=== PATIENT | female | born 1945 | race Two or more races ===

== ENCOUNTER 2017-06-04 14:52 | Inpatient (IN) | payer OTHER, MEDICARE ==
[~2017-06-04] VITALS: Ht 154.9 cm; Wt 48.3 kg
[~2017-06-04 14:52] MED LIST: ATORVASTATIN CA20 MG ORAL; CLONIDINE0.1 MG PO; COREG25 MG ORAL; DIOVAN320 MG ORAL; HYDRALAZINE HC100 MG ORAL; IBUPROFEN600 MG ORAL; ISOSORBIDE MONO20 MG PO; LANTUS5 UNITS SUBQ; OMEPRAZOLE20 M2 ORAL; RENVELA800 MG ORAL
[2017-06-04 15:08] VITALS: BP 176/75
--- NOTE | 2017-06-04 15:30 | Emergency Room Report ---
History of Present Illness General Chief Complaint: Chest Pain Source: Patient Present Illness HPI 80-year-old female, history of hypertension diabetes, end-stage renal disease on dialysis Wednesday and Wednesday. Last dialysis yesterday. Complaining of generalized weakness, chest pain, right hip pain. Grandson states that yesterday patient was feeling very weak, he was walking the patient , fell onto her buttocks, did not hit her head or lose consciousness. Since then patient is complaining of right-sided hip pain. Also patient complaining of general chest pain. Her right-sided dialysis catheter has been in place for 4 years. No fever chills nausea vomiting. Decreased appetite. Allergies: Coded Allergies: No Known Allergies (Unverified , 11/20/14) Patient History Past Medical History: see triage record Past Surgical History: none Pertinent Family History: none Reviewed Nursing Documentation: PMH: Agreed, PSxH: Agreed Nursing Documentation-PM Hx Cardiac Problems: Yes Hx Hypertension: Yes Hx Diabetes: Yes Hx Cancer: No Hx Gastrointestinal Problems: No Hx Dialysis: Yes - Wed Hx Neurological Problems: No Review of Systems All Other Systems: negative except mentioned in HPI Physical Exam Vital Signs Date Time Temp Pulse Resp B/P (MAP) Pulse Ox O2 Delivery O2 Flow Rate FiO2 06/04/17 15:00 100.4 82 20 171/72 100 Room Air Sp02 EP Interpretation: abnormal General Appearance: moderate distress, thin, other - elderly female, aox4, in pain Head: normocephalic, atraumatic Eyes: bilateral eye normal inspection, bilateral eye PERRL, bilateral eye EOMI ENT: normal ENT inspection, normal pharynx, normal voice, moist mucus membranes Neck: normal inspection, full range of motion, supple Respiratory: no respiratory distress, no retraction, no wheezing, other - dec breath sounds b/l bases, chest symmetrical Cardiovascular #1: regular rate, rhythm, no edema, other - R sided dialysis port Cardiovascular #2: 2+ radial (R), 2+ radial (L) Gastrointestinal: normal inspection, non tender, soft, non-distended, no guarding Musculoskeletal: other - R sided hip tenderness, has range of passive motion, slightly limited 2/2 to pain. no limb shortening or rotation. Neurologic: normal inspection, alert, oriented x3, responsive, motor strength/ tone normal, sensory intact, speech normal Psychiatric: normal inspection, judgement/insight normal, memory normal Skin: normal inspection, normal color, no rash, warm/dry, well hydrated, normal turgor Medical Decision Making Diagnostic Impression: Primary Impression: ESRD (end stage renal disease) Additional Impression: Vascular catheter infection ER Course 72-year-old female with 3 days of intermittent chest pain, generalized weakness , right-sided hip pain after fall yesterday. DDX: ACS vs. CHF vs. pneumonia Generalized weakness: dehydration/electrolyte disturbance/Infectious cause, UTI/ pneumonia, infected dialysis cath Right-sided hip pain: r/o fx vs contusion Plan: IV access, obtain labs including troponin, EKG, CXR Right hip CT ER course: +fever, tylenol given aspirin given for chest pain D/W Dr Pagan pt's PMD - she has had multiple admissions for chest pain, likely musculoskeletal, stress tests have been negative believed line likely infected as patient has had it for four years - abx given CT hip negative Disposition: Patient requires admission telemetry D/W hospitalist Dr Pagan Please note that this Emergency Department Report was dictated using Guided Interventionstelevision operator technology software, occasionally this can lead to erroneous entry secondary to interpretation by the dictation equipment. EKG Diagnostic Results EP Interpretation: Yes Rate: normal Rhythm: NSR ST Segments: No acute changes ASA given to patient: no Rhythm Strip EP Interpretation: Yes Rate:80 Rhythm: NSR, no PVCs, no ectopy Chest X-ray CXR: Ordered: Yes 1 view Indication: Chest pain EP interpretation: Yes Interpretation: cardiomegaly, w interstitital edema. b/l effusion. dialysis cath in place Impression: cardiomegaly, w interstitital edema. b/l effusion Electronically signed by Sharon Seay MD Laboratory Tests Test 06/04/17 15:25 White Blood Count 9.0 K/UL (4.8-10.8) Red Blood Count 3.78 M/UL (4.20-5.40) L Hemoglobin 11.3 G/DL (12.0-16.0) L Hematocrit 35.2 % (37.0-47.0) L Mean Corpuscular Volume 93 FL (80-99) Mean Corpuscular Hemoglobin 29.8 PG (27.0-31.0) Mean Corpuscular Hemoglobin Concent 32.0 G/DL (32.0-36.0) Red Cell Distribution Width 17.0 % (11.6-14.8) H Platelet Count 134 K/UL (150-450) L Mean Platelet Volume 8.2 FL (6.5-10.1) Neutrophils (%) (Auto) 88.1 % (45.0-75.0) H Lymphocytes (%) (Auto) 4.5 % (20.0-45.0) L Monocytes (%) (Auto) 7.0 % (1.0-10.0) Eosinophils (%) (Auto) 0.0 % (0.0-3.0) Basophils (%) (Auto) 0.4 % (0.0-2.0) Sodium Level 130 MMOL/L (136-145) L Potassium Level 5.2 MMOL/L (3.5-5.1) H Chloride Level 95 MMOL/L (98-107) L Carbon Dioxide Level 20 MMOL/L (21-32) L Anion Gap 15 mmol/L (5-15) Blood Urea Nitrogen 66 mg/dL (7-18) H Creatinine 5.7 MG/DL (0.55-1.30) H Estimate Glomerular Filtration Rate mL/min (>60) Glucose Level 174 MG/DL (74-106) H Lactic Acid Level 1.20 mmol/L (0.66-2.22) Calcium Level 9.1 MG/DL (8.5-10.1) Total Bilirubin 1.0 MG/DL (0.2-1.0) Aspartate Amino Transferase (AST) 33 U/L (15-37) Alanine Aminotransferase (ALT) 14 U/L (12-78) Alkaline Phosphatase 208 U/L (46-116) H Troponin I 0.263 ng/mL (0.000-0.056) Pro-B-Type Natriuretic Peptide > 47090 pg/mL (0-125) H Total Protein 8.4 G/DL (6.4-8.2) H Albumin 2.9 G/DL (3.4-5.0) L Globulin 5.5 g/dL Albumin/Globulin Ratio 0.5 (1.0-2.7) L CT/MRI/US Diagnostic Results CT/MRI/US Diagnostic Results : Imaging Test Ordered: CT hip Impression Findings: No acute pelvic fracture identified. Bilateral hip joints, sacroiliac joints and symphysis pubis are preserved. There is scoliosis and degenerative change of the lower lumbar spine. There is vacuum disc phenomenon at L4-L5. Images through the visceral pelvis demonstrate mild ascites. There is no bowel obstruction. Uterus is atrophic. There is extensive atherosclerotic vascular calcification. There is a tiny fat-containing umbilical hernia. IMPRESSION: No evidence of acute fracture. Mild ascites. Extensive atherosclerotic vascular calcifications Last Vital Signs Date Time Temp Pulse Resp B/P (MAP) Pulse Ox O2 Delivery O2 Flow Rate FiO2 06/04/17 15:00 100.4 82 20 171/72 100 Room Air Disposition: ADMITTED INPATIENT Condition: Serious Sharon Seay M.D. Jun 04, 2017 15:30
[2017-06-04 15:39] LABS: HEMATOCRIT 35.2 % (37.0-47.0); HEMOGLOBIN 11.3 G/DL (12.0-16.0); MEAN CORPUSCULAR VOLUME 93 FL (80-99); PLATELET COUNT 134 K/UL (150-450); RED BLOOD COUNT 3.78 M/UL (4.20-5.40)
[2017-06-04 15:40] LABS: BASOPHILS % (AUTO) 0.4 % (0.0-2.0); LYMPHOCYTES % (AUTO) 4.5 % (20.0-45.0); NEUTROPHILS % (AUTO) 88.1 % (45.0-75.0)
[2017-06-04 16:06] LABS: ANION GAP 15 mmol/L (5-15); BLOOD UREA NITROGEN 66 mg/dL (7-18); CALCIUM 9.1 MG/DL (8.5-10.1); CARBON DIOXIDE 20 MMOL/L (21-32); CHLORIDE 95 MMOL/L (98-107); CREATININE 5.7 MG/DL (0.55-1.30); POTASSIUM 5.2 MMOL/L (3.5-5.1); SODIUM 130 MMOL/L (136-145)
[2017-06-04 16:13] VITALS: BP 163/71
[2017-06-04 16:23] LABS: ALANINE AMINOTRANSFERASE 14 U/L (12-78); ALBUMIN 2.9 G/DL (3.4-5.0); ALBUMIN/GLOBULIN RATIO 0.5 (1.0-2.7); ALKALINE PHOSPHATASE 208 U/L (46-116); ASPARTATE AMINO TRANSFERASE 33 U/L (15-37)
[2017-06-04] MEDS ORDERED: Cefepime 1gm vial ONE (16:38)
--- NOTE | 2017-06-04 16:39 | Diagnostic Imaging Report ---
Indication: Pain status post fall Technique: Noncontrast CT of the right hip obtained utilizing automated exposure control. Axial, sagittal and coronal reformats. CT dose: Total DLP 349 mGycm; CTDI vol 12.2 mGy Comparison: Correlation made to images of the pelvis from CT of the abdomen and pelvis 09/17/2015. Findings: No acute pelvic fracture identified. Bilateral hip joints, sacroiliac joints and symphysis pubis are preserved. There is scoliosis and degenerative change of the lower lumbar spine. There is vacuum disc phenomenon at L4-L5. Images through the visceral pelvis demonstrate mild ascites. There is no bowel obstruction. Uterus is atrophic. There is extensive atherosclerotic vascular calcification. There is a tiny fat-containing umbilical hernia. IMPRESSION: No evidence of acute fracture. Mild ascites. Extensive atherosclerotic vascular calcifications The CT scanner at [facility] is accredited by the [employer] and the scans are performed using protocols designed to limit radiation exposure to as low as reasonably achievable to attain images of sufficient resolution adequate for diagnostic evaluation.
[2017-06-04] MEDS ORDERED: Cefepime HCl 1 GM in NS 55 ML IV ONE (16:45)
[2017-06-04] MEDS ORDERED: Vancomycin 1 GM in NS 275 ML IVPB ONE (16:45)
--- NOTE | 2017-06-04 16:48 | Diagnostic Imaging Report ---
Indication: Chest pain Technique: XRAY Chest 1v Comparison: 12/03/2014 Findings: Heart is enlarged. Dialysis catheter unchanged in position with its tip in the region of the right atrium. There bilateral pleural effusions, right greater than left with dense consolidation/atelectasis in the bilateral lower lungs. There is interstitial edema/opacification. No pneumothorax. There is multilevel degenerative change of the spine. Impression: Cardiomegaly with interstitial edema. Bilateral pleural effusions, right greater than left, with dense bibasilar atelectasis/consolidation.
[2017-06-04] MEDS ORDERED: Vancomycin 1gm inj IVPB ONE (17:18)
[2017-06-04 18:56] VITALS: BP 156/68
[2017-06-04] MEDS ORDERED: UNOBMED (19:08)
[2017-06-04 21:00] VITALS: BP 108/50
[2017-06-04 22:49] VITALS: BP 94/46
[2017-06-04 23:33] VITALS: BP 104/54
[2017-06-05 04:00] VITALS: BP 152/62
[2017-06-05 06:28] LABS: HEMATOCRIT 32.8 % (37.0-47.0); HEMOGLOBIN 10.7 G/DL (12.0-16.0); MEAN CORPUSCULAR VOLUME 93 FL (80-99); PLATELET COUNT 112 K/UL (150-450); RED BLOOD COUNT 3.53 M/UL (4.20-5.40); RED CELL DISTRIBUTION WIDTH 17.2 % (11.6-14.8); WHITE BLOOD COUNT 12.4 K/UL (4.8-10.8)
[2017-06-05 06:36] LABS: ANION GAP 17 mmol/L (5-15); BLOOD UREA NITROGEN 76 mg/dL (7-18); CALCIUM 8.7 MG/DL (8.5-10.1); CARBON DIOXIDE 19 MMOL/L (21-32); CHLORIDE 96 MMOL/L (98-107); CREATININE 6.2 MG/DL (0.55-1.30); POTASSIUM 4.6 MMOL/L (3.5-5.1); SODIUM 132 MMOL/L (136-145)
[2017-06-05 06:48] LABS: ALANINE AMINOTRANSFERASE 14 U/L (12-78); ALBUMIN 2.3 G/DL (3.4-5.0); ALBUMIN/GLOBULIN RATIO 0.5 (1.0-2.7); ALKALINE PHOSPHATASE 171 U/L (46-116); ASPARTATE AMINO TRANSFERASE 35 U/L (15-37); BILIRUBIN,TOTAL 0.8 MG/DL (0.2-1.0)
[2017-06-05] MEDS ORDERED: Miralax 17gm pkt ORAL PRN (07:45)
[2017-06-05] MEDS ORDERED: Nitroglycerin Subl 0.4mg tab SL PRN (07:45)
[2017-06-05 08:00] VITALS: BP 154/67
[2017-06-05] MEDS: Acetaminophen 500mg (ES) tab ORAL SCH ×3 (08:30→22:00)
[2017-06-05] MEDS: HydrALAZINE 50mg tab ORAL SCH ×2 (08:58→21:00)
[2017-06-05] MEDS: Aspirin Baby 81mg ORAL SCH (08:59)
[2017-06-05] MEDS: Imdur 30mg tab ORAL SCH (09:00)
[2017-06-05] MEDS: Heparin 5000 units/ml inj SUBQ SCH ×2 (09:00→21:00)
[2017-06-05] MEDS: Losartan 50mg tab ORAL SCH (09:15)
[2017-06-05] MEDS: Carvedilol 25mg Tab ORAL SCH ×2 (09:15→21:11)
[2017-06-05] MEDS: Cefepime HCl 1 GM in D5W 55 ML IVPB SCH (11:04)
[2017-06-05] MEDS: NovoLOG Insulin Flexpen SUBQ SCH ×3 (11:30→21:00)
[2017-06-05 12:00] VITALS: BP 112/60
[2017-06-05 16:00] VITALS: BP 108/50
--- NOTE | 2017-06-05 16:00 | History and Physical Report ---
DATE OF ADMISSION: 06/04/2017 CHIEF COMPLAINT AND REASON FOR HOSPITALIZATION: The patient admitted with fever, falls, end-stage renal disease, and failure to thrive. HISTORY OF PRESENT ILLNESS: The patient has been on hemodialysis for the last approximately two years. She uses a right jugular PermCath. She is wheelchair dependent, has severe osteoarthritis, and had a ground level fall with some hip and generalized pain. Imaging in the emergency room showed no fracture, but she did have a fever. The jugular dialysis catheter has had some pericatheter blood leakage and planning to remove this catheter and place a new one soon. Fevers is concerning for catheter infections. There is history of chronic congestive heart failure, pleural effusions, osteoarthritis, insulin-dependent diabetes, and deaf. PAST SURGICAL HISTORY: Ear and eye surgery, right dialysis PermCath, and dialysis fistula that never matured. MEDICATIONS: Reviewed on the computer. The patient is unable to give us any information. ALLERGIES: None known. HABITS: She is a smoker, quit about 25 years ago. No alcohol or drugs. SYSTEM REVIEW: HEENT: She has severe hearing impairment. The patient's vision intact. ENDOCRINE: Longstanding diabetes. Glucose usually 150 to 225. No thyroid disease. PULMONARY: No asthma or TB, but she is chronically short of breath on home oxygen. She has pleural effusions. CARDIAC: History of diastolic congestive heart failure and recurrent episodes of chest pain and several negative stress tests in the last two years. Chest pain is atypical. GASTROINTESTINAL: No ulcers or GI bleeding. She has had ascites due to fluid retention in the past. GENITOURINARY: She makes little urine. NEUROLOGIC: No CVA or seizures. PSYCHIATRIC: History of agitated dementia. PHYSICAL EXAMINATION: GENERAL: The patient is alert lady, in no acute distress, chronically ill-appearing. VITAL SIGNS: Temperature 97.7 degrees, pulse 63, respirations 20, and blood pressure 152/62. HEENT: Sclerae nonicteric. Ocular motions intact in all directions. Oral mucosa slightly dry. She is deaf. NECK: No adenopathy. CHEST: There is a right jugular PermCath. LUNGS: Clear. Decreased breath sounds at the bases. HEART: Regular rhythm. I hear no murmur. ABDOMEN: Soft without organomegaly or masses. EXTREMITIES: Show [id number] arthritis in the knees, shoulders, and hands. No edema. NEUROLOGIC: She is alert and responsive. Cranial nerves are intact. She is disoriented. PERTINENT LABORATORY DATA: Show white count of 12.4 and hemoglobin of 10.7. Sodium 130, potassium 5.2, BUN 66, creatinine 5.7, and glucose 174. BNP of greater than 35,000. Troponin of 0.263. IMPRESSION: 1. Fever, possible catheter infection. 2. End-stage renal disease. 3. Osteoarthritis. 4. Ground level fall. 5. Cardiomegaly and congestive heart failure. 6. Elevated troponin. 7. Chronic congestive heart failure. PLAN: The patient received dialysis via catheter. We will try to have the catheter removed and a new catheter placed soon. Cardiology consultation in view of the elevated troponin. She is chronically ill and high risk patient. She was started on vancomycin and cefepime pending culture results. Go Pagan M.D. DR: Ale JOB#: [id number] CC:
[2017-06-05 20:00] VITALS: BP 131/53
[2017-06-05] MEDS: Atorvastatin 20mg tab ORAL SCH (21:11)
[2017-06-05] MEDS: Levemir Flexpen SUBQ SCH (21:14)
--- NOTE | 2017-06-05 22:45 | Consultation ---
DATE OF CONSULTATION: 06/05/2017 CARDIOLOGY CONSULTATION CONSULTING PHYSICIAN: Papi Ma M.D. REQUESTING PHYSICIAN: Go Pagan M.D. REASON FOR CONSULTATION: Elevated troponin level, evaluate for myocardial infarction. HISTORY OF PRESENT ILLNESS: This is an elderly female, on hemodialysis for several years. She has had several ground level falls. She came to the emergency room as a result. She was assessed for pain and was also noted to have a fever and an elevated troponin level, which has prompted this consultation. She has not complained of any chest pain or shortness of breath. PAST MEDICAL HISTORY: Osteoarthritis, end-stage renal disease, chronic congestive heart failure, recurring pleural effusions, osteoarthritis, insulin-requiring diabetes mellitus, deafness, and chronic obstructive pulmonary disease. ALLERGIES: None. MEDICATIONS: Reviewed and reconciled. SOCIAL HISTORY: She has a smoking history, but quit about 25 years ago. No alcohol or substance abuse. FAMILY HISTORY: Noncontributory. REVIEW OF SYSTEMS: She has severe hearing impairment. Her vision is intact. She is longstanding diabetic, on insulin. There is no history of thyroid disorder. Cholesterol parameters are not known. She has a history of chronic diastolic congestive heart failure. She has had chest pain in the past. She has had several stress tests that have been negative as well over the past two years. There is no known history of atrial fibrillation or endocarditis. No pericardial effusion. She has not had any change in bowel habits. There is a history of ascites due to fluid retention in the past, but no liver disease. There is no history of blood clotting. There is no history of asthma. There is no history of frequency or dysuria. She makes minimal urine. She has no history of seizure or stroke. PHYSICAL EXAMINATION: GENERAL: Awake, alert, ill appearing, afebrile. VITAL SIGNS: Blood pressure of 150/60, pulse 60, and respirations 20. HEENT: Normocephalic and atraumatic. Conjunctivae pink. Oropharynx clear. Mucous membranes dry. NECK: Supple. Jugular venous pressure normal. There is a right jugular PermCath. LUNGS: Clear. CARDIAC: Regular rhythm and rate. Normal S1, S2 with a fourth heart sound. No rub. ABDOMEN: Soft and nontender. EXTREMITIES: Revealed degenerative changes of the hand, knees, and feet. No edema. NEUROLOGIC: Nonfocal. LABORATORY AND DIAGNOSTIC DATA: Troponin yesterday was 0.263, today 0.335. BUN 76, creatinine 6.2, potassium 4.6. Albumin 2.3. White count is 12.4, hemoglobin 10.7. EKG, sinus rhythm, no acute ST-T abnormalities. Chest x-ray, cardiomegaly, interstitial edema, and effusions. IMPRESSION: 1. Acute myocardial infarction. 2. Acute coronary insufficiency. 3. Acute on chronic diastolic congestive heart failure. 4. End-stage renal disease. 5. Mechanical fall. 6. Multiple contusions. 7. Insulin-requiring diabetes mellitus. PLAN: 1. Anti-platelet therapy. 2. Hemodialysis with ultrafiltration. 3. Beta-blockade. 4. Echocardiogram. 5. Maximize anti-failure regimen. 6. Medical therapy in this clinical setting. If refractory, we will consider cardiac catheterization. Papi Ma M.D. DR: SAI JOB#: [id number] CC:
[2017-06-06] VITALS: BP 134/72
[2017-06-06 04:00] VITALS: BP 117/53
[2017-06-06] MEDS: Acetaminophen 500mg (ES) tab ORAL SCH ×4 (06:11→21:46)
[2017-06-06] MEDS: NovoLOG Insulin Flexpen SUBQ SCH ×4 (06:30→21:49)
[2017-06-06] MEDS ORDERED: Heparin Sod 1000 units/ml 10ml IV ONE (07:45)
[2017-06-06 08:00] VITALS: BP 127/55
[2017-06-06 08:47] LABS: CHOLESTEROL 154 MG/DL (< 200); CKMB 2.2 NG/ML (0.0-3.6); CREATINE KINASE 242 U/L (26-308); HDL CHOLESTEROL 22 MG/DL (40-60); TRIGLYCERIDES 222 MG/DL (30-150)
[2017-06-06] MEDS: HydrALAZINE 50mg tab ORAL SCH ×2 (09:00→21:39)
[2017-06-06] MEDS: Heparin 5000 units/ml inj SUBQ SCH ×2 (09:00→21:00)
[2017-06-06] MEDS: Cefepime HCl 1 GM in D5W 55 ML IVPB SCH (09:25)
[2017-06-06] MEDS: Losartan 50mg tab ORAL SCH (09:26)
[2017-06-06] MEDS: Aspirin Baby 81mg ORAL SCH (09:26)
[2017-06-06] MEDS: Imdur 30mg tab ORAL SCH (09:27)
[2017-06-06] MEDS: Carvedilol 25mg Tab ORAL SCH ×2 (09:28→21:37)
[2017-06-06 12:00] VITALS: BP 117/50
--- NOTE | 2017-06-06 13:39 | Nephrology Progress Note ---
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 (4) Vascular catheter infection Plan continue to monitor with [place], needs cath removal and replace Subjective Constitutional: Reports: weakness HEENT: Reports: no symptoms Genitourinary: Reports: no symptoms Neurologic/Psychiatric: Reports: pre-existing deficit Objective Objective Last 24 Hour Vital Signs Date Time Temp Pulse Resp B/P (MAP) Pulse Ox O2 Delivery O2 Flow Rate FiO2 06/06/17 09:28 68 127/55 06/06/17 09:27 127/55 06/06/17 09:27 127/55 06/06/17 09:26 127/55 06/06/17 08:00 99.7 68 20 127/55 94 06/06/17 08:00 71 06/06/17 04:00 97.7 63 16 117/53 95 06/06/17 04:00 63 06/06/17 00:00 66 06/06/17 00:00 98.2 68 16 134/72 98 06/05/17 23:08 97.2 06/05/17 21:11 90 129/74 06/05/17 21:00 129/74 06/05/17 20:00 100.9 69 18 131/53 90 Room Air 06/05/17 20:00 73 06/05/17 18:04 112/60 06/05/17 16:00 98.1 63 20 108/50 96 Room Air 06/05/17 16:00 60 06/05/17 14:31 97.7 Intake and Output 06/05/17 06/06/17 19:00 07:00 Intake Total 120 ml Balance 120 ml Intake Oral 120 ml # Voids 8 # Bowel Movements 1 1 Laboratory Tests 06/05/17 16:36: Uric Acid 4.9, Troponin I 0.335H 06/06/17 05:45: Troponin I 0.309H, Total Creatine Kinase 242, Creatine Kinase MB 2.2, Creatine Kinase MB Relative Index 0.9, Pro-B-Type Natriuretic Peptide > 34572A, Triglycerides Level 222H, Cholesterol Level 154, LDL Cholesterol 70, HDL Cholesterol 22L, Cholesterol/HDL Ratio 7.0H Height (Feet): 5 Height (Inches): 1.00 Weight (Pounds): 116 General Appearance: no apparent distress, alert EENT: other - deaf Neck: normal alignment Cardiovascular: normal rate, regular rhythm Respiratory/Chest: lungs clear Abdomen: non tender, soft Extremities: other - no edema 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
[2017-06-06 16:00] VITALS: BP 122/48
[2017-06-06] MEDS: Levemir Flexpen SUBQ SCH ×2 (17:02→21:48)
[2017-06-06 20:00] VITALS: BP 129/61
[2017-06-06] MEDS: Atorvastatin 20mg tab ORAL SCH (21:38)
[2017-06-07] VITALS: BP 109/50
[2017-06-07 04:00] VITALS: BP 113/54
[2017-06-07] MEDS: Acetaminophen 500mg (ES) tab ORAL SCH ×3 (05:44→21:59)
[2017-06-07] MEDS: NovoLOG Insulin Flexpen SUBQ SCH ×4 (06:30→22:03)
[2017-06-07 07:57] LABS: BASOPHILS % (AUTO) 0.5 % (0.0-2.0); EOSINOPHILS % (AUTO) 0.5 % (0.0-3.0); HEMATOCRIT 30.8 % (37.0-47.0); HEMOGLOBIN 10.1 G/DL (12.0-16.0); LYMPHOCYTES % (AUTO) 5.2 % (20.0-45.0); MEAN CORPUSCULAR VOLUME 92 FL (80-99); MONOCYTES % (AUTO) 9.9 % (1.0-10.0); PLATELET COUNT 153 K/UL (150-450); RED BLOOD COUNT 3.36 M/UL (4.20-5.40); RED CELL DISTRIBUTION WIDTH 17.6 % (11.6-14.8); WHITE BLOOD COUNT 6.7 K/UL (4.8-10.8)
[2017-06-07 08:00] VITALS: BP 119/50
[2017-06-07 08:01] LABS: ANION GAP 17 mmol/L (5-15); BLOOD UREA NITROGEN 69 mg/dL (7-18); CALCIUM 8.4 MG/DL (8.5-10.1); CARBON DIOXIDE 20 MMOL/L (21-32); CHLORIDE 96 MMOL/L (98-107); CREATININE 6.2 MG/DL (0.55-1.30); POTASSIUM 3.8 MMOL/L (3.5-5.1); SODIUM 133 MMOL/L (136-145)
[2017-06-07 08:28] LABS: INR 1.2 (0.9-1.1)
[2017-06-07] MEDS: Heparin 5000 units/ml inj SUBQ SCH ×2 (09:00→22:02)
[2017-06-07] MEDS: Losartan 50mg tab ORAL SCH (09:00)
[2017-06-07] MEDS: Carvedilol 25mg Tab ORAL SCH ×2 (09:00→21:54)
[2017-06-07] MEDS: Aspirin Baby 81mg ORAL SCH (10:00)
[2017-06-07] MEDS: HydrALAZINE 50mg tab ORAL SCH ×2 (10:01→21:55)
[2017-06-07] MEDS: Cefepime HCl 1 GM in D5W 55 ML IVPB SCH (10:03)
[2017-06-07] MEDS: Imdur 30mg tab ORAL SCH (11:02)
[2017-06-07 12:00] VITALS: BP 110/46
--- NOTE | 2017-06-07 13:15 | Progress Note ---
DATE: 06/06/2017 CARDIOLOGY PROGRESS NOTE SUBJECTIVE: The patient remains without complaints. No shortness of breath. T-max 100.9, has infected dialysis catheter. OBJECTIVE: VITAL SIGNS: Blood pressure 127/55, pulse 68, and respiratory rate 20. NECK: Supple. LUNGS: Clear. CARDIAC: Regular rhythm and rate. Normal S1 and S2 with a fourth heart sound. ABDOMEN: Soft. EXTREMITIES: No edema. LABORATORY DATA: Cultures are negative. Labs notable for troponin 0.309. Pro-natriuretic peptide over 35,000. LDL cholesterol 70. IMPRESSION: 1. Infected dialysis catheter. 2. Sepsis. 3. Acute myocardial infarction. 4. Acute on chronic diastolic congestive heart failure. PLAN: 1. Antimicrobials. 2. Catheter removal and replacement. 3. Continue antianginal regimen. 4. Conservative management in this age group and clinical setting. 5. DNR/DNI per advanced directives. Papi Ma M.D. DR: RASHEED/SY JOB#: [id number] CC:
--- NOTE | 2017-06-07 13:35 | Diagnostic Imaging Report ---
Indication: Bacteremia Technique and Findings: Informed consent was obtained on the tucker prior to the procedure. This was confirmed before starting the procedure. The patient placed supine on the angiography table and the right neck and external portions of the indwelling tunneled dialysis catheter were prepped and draped in usual sterile fashion. Preprocedure timeout was performed, as per protocol. Spot fluoroscopic image was obtained, demonstrating the indwelling catheter. There was no sizable percent lidocaine with epinephrine and the catheter was bluntly dissected free. The entire catheter was removed, including the subcutaneous cuff. Catheter tip was cut and sent for culture. Completion spot fluoroscopic image demonstrates removal of catheter in its entirety. Total fluoroscopy time 0.7 minutes Fluoroscopy dose: 22 dGy*cm2 Impression: Indwelling tunneled dialysis catheter removed in its entirety. Catheter tip sent for culture.
--- NOTE | 2017-06-07 14:48 | Nephrology Progress Note ---
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 (4) Vascular catheter infection Plan continue to monitor with [place], had cath removal and replace soon Subjective Constitutional: Reports: weakness HEENT: Reports: no symptoms Genitourinary: Reports: no symptoms Neurologic/Psychiatric: Reports: no symptoms Objective Objective Last 24 Hour Vital Signs Date Time Temp Pulse Resp B/P (MAP) Pulse Ox O2 Delivery O2 Flow Rate FiO2 06/07/17 11:02 119/59 06/07/17 10:01 119/59 06/07/17 09:00 119/59 06/07/17 09:00 119/59 06/07/17 09:00 52 119/50 06/07/17 08:00 95.5 52 17 119/50 97 Room Air 06/07/17 04:00 63 06/07/17 04:00 95.5 58 18 113/54 96 Room Air 06/07/17 00:00 67 06/07/17 00:00 97.3 70 20 109/50 96 Room Air 06/06/17 21:39 129/61 06/06/17 21:37 63 129/61 06/06/17 20:06 62 06/06/17 20:00 97.3 63 22 129/61 95 Room Air 06/06/17 17:31 122/48 06/06/17 16:00 59 06/06/17 16:00 97.7 57 20 122/48 95 Intake and Output 06/06/17 06/07/17 19:00 07:00 Intake Total 590 ml 200 ml Balance 590 ml 200 ml Intake Oral 480 ml 200 ml IV Total 110 ml # Bowel Movements 1 2 Laboratory Tests 06/07/17 07:15: White Blood Count 6.7, Red Blood Count 3.36L, Hemoglobin 10.1L, Hematocrit 30.8L , Mean Corpuscular Volume 92, Mean Corpuscular Hemoglobin 30.0, Mean Corpuscular Hemoglobin Concent 32.7, Red Cell Distribution Width 17.6H, Platelet Count 153, Mean Platelet Volume 7.6, Neutrophils (%) (Auto) 84.0H, Lymphocytes (%) (Auto) 5.2L, Monocytes (%) (Auto) 9.9, Eosinophils (%) (Auto) 0.5, Basophils (%) (Auto) 0.5, Prothrombin Time 12.6H, Prothromb Time International Ratio 1.2H, Activated Partial Thromboplast Time 41H, Sodium Level 133L, Potassium Level 3.8, Chloride Level 96L, Carbon Dioxide Level 20L, Anion Gap 17H, Blood Urea Nitrogen 69H, Creatinine 6.2H, Estimat Glomerular Filtration Rate , Glucose Level 77, Calcium Level 8.4L Height (Feet): 5 Height (Inches): 1.00 Weight (Pounds): 110 General Appearance: no apparent distress, alert EENT: normal ENT inspection Neck: normal alignment Cardiovascular: regular rhythm Respiratory/Chest: lungs clear Abdomen: non tender, soft Extremities: other - no edema 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
[2017-06-07 16:00] VITALS: BP 121/49
[2017-06-07 20:00] VITALS: BP 117/55
[2017-06-07] MEDS: Atorvastatin 20mg tab ORAL SCH (21:55)
[2017-06-07] MEDS: Levemir Flexpen SUBQ SCH (22:03)
[2017-06-08] VITALS (10 sets, daily range): BP systolic 95–144; BP diastolic 50–87
[2017-06-08] MEDS: Acetaminophen 500mg (ES) tab ORAL SCH ×3 (05:48→22:00)
[2017-06-08] MEDS: NovoLOG Insulin Flexpen SUBQ SCH ×4 (06:01→20:37)
[2017-06-08 08:50] LABS: ANION GAP 18 mmol/L (5-15); BLOOD UREA NITROGEN 82 mg/dL (7-18); CALCIUM 8.6 MG/DL (8.5-10.1); CARBON DIOXIDE 17 MMOL/L (21-32); CHLORIDE 95 MMOL/L (98-107); CREATININE 6.9 MG/DL (0.55-1.30); POTASSIUM 4.7 MMOL/L (3.5-5.1); SODIUM 130 MMOL/L (136-145)
[2017-06-08] MEDS: HydrALAZINE 50mg tab ORAL SCH ×2 (08:54→20:33)
[2017-06-08] MEDS: Carvedilol 25mg Tab ORAL SCH ×2 (08:54→20:34)
[2017-06-08 08:56] LABS: BASOPHILS % (AUTO) 0.5 % (0.0-2.0); EOSINOPHILS % (AUTO) 1.2 % (0.0-3.0); HEMATOCRIT 35.5 % (37.0-47.0); HEMOGLOBIN 11.3 G/DL (12.0-16.0); MEAN CORPUSCULAR VOLUME 92 FL (80-99); MONOCYTES % (AUTO) 8.4 % (1.0-10.0); NEUTROPHILS % (AUTO) 81.8 % (45.0-75.0); PLATELET COUNT 183 K/UL (150-450); RED BLOOD COUNT 3.88 M/UL (4.20-5.40); RED CELL DISTRIBUTION WIDTH 17.6 % (11.6-14.8); WHITE BLOOD COUNT 6.1 K/UL (4.8-10.8)
[2017-06-08] MEDS: Imdur 30mg tab ORAL SCH (08:56)
[2017-06-08] MEDS: Aspirin Baby 81mg ORAL SCH (08:56)
[2017-06-08] MEDS: Heparin 5000 units/ml inj SUBQ SCH ×2 (08:57→20:36)
[2017-06-08] MEDS: Losartan 50mg tab ORAL SCH (08:57)
[2017-06-08] MEDS: Cefepime HCl 1 GM in D5W 55 ML IVPB SCH (10:37)
--- NOTE | 2017-06-08 12:00 | Progress Note ---
DATE: 06/07/2017 CARDIOLOGY PROGRESS NOTE SUBJECTIVE: The patient without chest pain. New dialysis catheter is planned. OBJECTIVE: VITAL SIGNS: Blood pressure 119/59, pulse 52, respirations 17. LUNGS: Clear. CARDIAC: Regular rhythm. Slow rate. Normal S1, S2. No murmur. ABDOMEN: Soft. EXTREMITIES: Trace edema. IMPRESSION: 1. Vascular catheter infection. 2. Sepsis. 3. Acute myocardial infarction. 4. Bradyarrhythmia. 5. Type 2 diabetes mellitus. 6. Stable blood pressure range. PLAN: 1. Change clonidine to p.r.n. dosing in view of low heart rate and blood pressure. 2. Maintain beta-blockade. Continue anti-platelet therapy and nitrates. 3. New catheter for dialysis planned. 4. Medical management with uncomplicated MO in this clinical setting and age group. Papi Ma M.D. DR: WILLAM JOB#: [id number] CC:
--- NOTE | 2017-06-08 13:34 | Nephrology Progress Note ---
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 (4) Vascular catheter infection Plan continue to monitor with NM, had cath removal and replace soon, hd 06/08 after line placed, dc planning Subjective Constitutional: Reports: weakness HEENT: Reports: no symptoms Genitourinary: Reports: no symptoms Neurologic/Psychiatric: Reports: no symptoms Objective Objective Last 24 Hour Vital Signs Date Time Temp Pulse Resp B/P (MAP) Pulse Ox O2 Delivery O2 Flow Rate FiO2 06/08/17 08:57 143/53 06/08/17 08:56 141/53 06/08/17 08:54 141/53 06/08/17 08:54 61 141/53 06/08/17 08:00 97.0 61 18 141/53 94 06/08/17 04:00 97.0 62 20 126/79 97 06/08/17 04:00 63 06/08/17 00:00 97.7 63 18 124/50 90 06/07/17 23:29 64 06/07/17 21:55 117/55 06/07/17 21:54 63 117/55 06/07/17 20:57 63 06/07/17 20:00 97.3 62 18 117/55 91 06/07/17 17:26 121/49 06/07/17 16:00 60 06/07/17 16:00 97.5 59 18 121/49 95 Room Air Intake and Output 06/07/17 06/08/17 19:00 07:00 Intake Total 120 ml 0 ml Balance 120 ml 0 ml Intake Oral 120 ml 0 ml Laboratory Tests 06/08/17 07:40: White Blood Count 6.1, Red Blood Count 3.88L, Hemoglobin 11.3L, Hematocrit 35.5L , Mean Corpuscular Volume 92, Mean Corpuscular Hemoglobin 29.1, Mean Corpuscular Hemoglobin Concent 31.7L, Red Cell Distribution Width 17.6H, Platelet Count 183, Mean Platelet Volume 9.1, Neutrophils (%) (Auto) 81.8H, Lymphocytes (%) (Auto) 8.0L, Monocytes (%) (Auto) 8.4, Eosinophils (%) (Auto) 1.2, Basophils (%) (Auto) 0.5, Sodium Level 130L, Potassium Level 4.7, Chloride Level 95L, Carbon Dioxide Level 17L, Anion Gap 18H, Blood Urea Nitrogen 82H, Creatinine 6.9H, Estimat Glomerular Filtration Rate , Glucose Level 97, Calcium Level 8.6 Height (Feet): 5 Height (Inches): 1.00 Weight (Pounds): 117 General Appearance: no apparent distress, alert EENT: normal ENT inspection Neck: supple Cardiovascular: normal rate Respiratory/Chest: lungs clear Abdomen: non tender, soft 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
[2017-06-08] MEDS ORDERED: Heparin 2000 units/Ns 1000ml INJ ONE (14:00)
[2017-06-08] MEDS ORDERED: Heparin Sod 1000 units/ml 10ml INJ ONE (14:00)
[2017-06-08] MEDS ORDERED: Lidocaine 2% 20mg/ml/Epi 0.005mg/ml 20ml vial INJ ONE (14:00)
[2017-06-08] MEDS ORDERED: Heparin Sod 1000 units/ml 10ml IV ONE (15:00)
--- NOTE | 2017-06-08 17:08 | Diagnostic Imaging Report ---
Indication: Patient requires long-term hemodialysis. Findings: After the indications, procedure, risks, complications, and alternatives of the procedure were explained, written informed consent was obtained. Patient was brought to the angio-fluoroscopic suite and placed supine on the table. All elements of maximum sterile barrier technique were followed including use of a cap and mask, sterile gown, sterile gloves, and a large sterile sheet. Alcohol used to prep the skin. 1% lidocaine was used to anesthetize the skin and subcutaneous tissue. Sonographic evaluation of the the left jugular vein was performed demonstrating a patent and compressible vein. Access using an 18 gauge needle was obtained under real-time ultrasound guidance and digital image was saved in archive. An 035 wire was then advanced into the vein and negotiated fluoroscopically into the inferior vena cava. Lidocaine infiltration of the right anterior chest wall was then performed followed by dermatotomy. A tunnel of lidocaine was then made between this site and the venous puncture site. A 14.5 spanish 23 cm dual-lumen catheter was then tunneled through the tract. The wire within the jugular vein was then exchanged for a dilator. Serial dilatations were performed. The catheter was then inserted into the last dilator/peel-away sheath such that the tip resides in the SVC. The dilator/peel-away sheath and wire were removed and the catheter was completely buried under the skin. Proximal portion of the catheter was secured to the skin using 2-0 Prolene suture. Both ports aspirate and flush easily. Both dermatotomy sites were closed with Dermabond. Total fluoroscopic time 4.1 minute Impression: Successful placement of tunneled left jugular hemodialysis catheter. No complications.
[2017-06-08] MEDS: Atorvastatin 20mg tab ORAL SCH (20:31)
[2017-06-08] MEDS: Levemir Flexpen SUBQ SCH (20:37)
[2017-06-09] VITALS: BP 125/79
[2017-06-09 04:00] VITALS: BP 122/71
[2017-06-09] MEDS: Acetaminophen 500mg (ES) tab ORAL SCH ×2 (06:00→06:12)
--- NOTE | 2017-06-09 06:00 | Progress Note ---
DATE: 06/08/2017 CARDIOLOGY PROGRESS NOTE SUBJECTIVE: The patient has agitation and refuses some therapies. She is in no distress. OBJECTIVE: VITAL SIGNS: Blood pressure 142/53, pulse 61, respiratory rate 18, and afebrile. LUNGS: Clear. CARDIAC: Regular rhythm rate. Normal S1, S2 with a fourth heart sound. ABDOMEN: Soft. EXTREMITIES: No edema. LABORATORY DATA: White count is 6.1 and hemoglobin 11.3. Potassium is 4.7. IMPRESSION: 1. [id number] myocardial infarction uncomplicated. 2. End-stage renal disease, status post removal of infected dialysis catheter. 3. Type 1 diabetes mellitus with complications. 4. Compensated diastolic congestive heart failure. PLAN: 1. Medical therapy. 2. Continue current regimen. 3. Antimicrobials. 4. New catheter access. 5. No change in cardiovascular regimen. Papi Ma M.D. DR: Herman JOB#: [id number] CC:
[2017-06-09] MEDS: NovoLOG Insulin Flexpen SUBQ SCH ×2 (06:30→11:14)
[2017-06-09 08:42] VITALS: BP 122/66
[2017-06-09] MEDS: Imdur 30mg tab ORAL SCH (08:51)
[2017-06-09] MEDS: HydrALAZINE 50mg tab ORAL SCH (08:51)
[2017-06-09] MEDS: Carvedilol 25mg Tab ORAL SCH (08:51)
[2017-06-09] MEDS: Aspirin Baby 81mg ORAL SCH (08:51)
[2017-06-09 08:52] VITALS: BP 122/66
[2017-06-09] MEDS: Losartan 50mg tab ORAL SCH (08:52)
[2017-06-09] MEDS: Heparin 5000 units/ml inj SUBQ SCH (08:54)
[2017-06-09] MEDS: Cefepime HCl 1 GM in D5W 55 ML IVPB SCH (09:15)
--- NOTE | 2017-06-09 21:33 | Progress Note ---
DATE: 06/09/2017 CARDIOLOGY PROGRESS NOTE SUBJECTIVE: The patient has no chest pain. No shortness of breath. She is occasionally agitated and refusing medications. She is status post PermCath placement following removal of infected catheter. OBJECTIVE: VITAL SIGNS: Blood pressure 122/71, pulse 61, respiratory 16 and no fevers. CHEST: Chest wall catheter on the right subclavian region with no bleeding. LUNGS: Clear. CARDIAC: Regular rhythm and rate. Normal S1 and S2 with a fourth heart sound. ABDOMEN: Soft. EXTREMITIES: Without edema. LABORATORY AND DIAGNOSTIC DATA: No new laboratory studies. IMPRESSION: 1. Acute myocardial infarction. 2. Uncomplicated non ST-elevation type. 3. End-stage renal disease with removal of infected dialysis catheter and status post new right subclavian PermCath. 4. Diabetes mellitus type 1 with multiple complications, now compensated. 5. Diastolic dysfunction with no signs of acute congestive heart failure. 6. Dementia with agitation due to underlying cerebrovascular disease. PLAN: 1. Outpatient followup. 2. Medical management. 3. No plan for invasive interventions in view of stable course and comorbidities. 4. Discharge medication regimen reviewed. 5. Hemodialysis with ultrafiltration for volume management long-term discussed with Dr. Pagan. Papi Ma M.D. DR: BONNIE JOB#: [id number] CC:
--- NOTE | 2017-06-10 14:36 | Cardiology Report ---
APPROVED REPORT EKG Measurement Heart [id number] Atrial fibrillation Possible Anterior infarct, age undetermined Abnormal ECG
--- NOTE | 2017-06-16 11:00 | Discharge Summary ---
DATE OF ADMISSION: 06/04/2017 DATE OF DISCHARGE: 06/09/2017 HISTORY: The patient admitted with fever, falls, end-stage renal disease, failure to thrive. There is history of some behavior problems, dementia, hearing impairment, chronic CHF, and insulin-dependent diabetes. PERTINENT PHYSICAL FINDINGS: HEAD, EYES, EARS, NOSE, THROAT: She is deaf. Oral mucosa is slightly dry. NECK: No adenopathy. LUNGS: Clear. CHEST: There is right jugular PermCath. HEART: Regular rhythm. No murmur. ABDOMEN: Soft. No organomegaly. EXTREMITIES: Show [id number] arthritis in the knees. NEUROLOGIC: She is alert and responsive. Cranial nerves are intact. She is disoriented. COURSE IN THE HOSPITAL: She was cultured and placed on broad-spectrum antibiotics for presumed catheter-induced infection. Her fever came down, but cultures remained negative but in the view of problems using her dialysis PermCath as an outpatient and leukocytosis, it was felt that she likely had an occult catheter infection and the dialysis PermCath was removed and subsequently after a course of antibiotics, this was replaced. The patient had some behavior problems and her Seroquel was reinserted. Imaging were negative for any fractures after a fall. CHF was compensated and she was discharged home in stable condition. FINAL DIAGNOSES: 1. Fever, likely dialysis catheter sepsis. 2. Complications of dialysis access with removal and replacement of dialysis PermCath. 3. End-stage renal disease. 4. History of ground-level fall. 5. Osteoarthritis. 6. Chronic congestive heart failure. 7. Ischemic heart disease. 8. Acute myocardial infarction, [id number]. 9. 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 10. Congestive heart failure with diastolic dysfunction, acute on chronic. 11. Dementia with agitation. 12. Deaf. DISCHARGE DISPOSITION: She is discharged home on renal, diabetic diet. Medications per the discharge medication list. Followup by Dr. Pagan in the office of the dialysis unit. Go Pagan M.D. DR: Brock JOB#: [id number] CC:
== END 2017-06-09 12:05 | disposition home or self-care (01) | DRG 466 ==
LOC: EMR 15:30 → EDBEDREQ 15:49 → 2E 18:30 → EDBEDREQ 21:53 → 2E 06-05 06:47
PROC: 5A1D70Z Performance of Urinary Filtration, Intermittent, Less than 6 Hours Per Day (ICD-10-PCS; 2017-06-05)
PROC: 02PAX3Z Removal of Infusion Device from Heart, External Approach (ICD-10-PCS; 2017-06-07)
PROC: 02HV33Z Insertion of Infusion Device into Superior Vena Cava, Percutaneous Approach (ICD-10-PCS; principal; 2017-06-08)
PROC: B548ZZA Ultrasonography of Superior Vena Cava, Guidance (ICD-10-PCS; 2017-06-08)
DX: T82.7XXA Infection and inflammatory reaction due to other cardiac and vascular devices, implants and grafts, initial encounter (principal); N18.6 End stage renal disease; I21.4 Non-ST elevation (NSTEMI) myocardial infarction; A41.9 Sepsis, unspecified organism; I50.33 Acute on chronic diastolic (congestive) heart failure; I13.2 Hypertensive heart and chronic kidney disease with heart failure and with stage 5 chronic kidney disease, or end stage renal disease; M19.90 Unspecified osteoarthritis, unspecified site; J44.9 Chronic obstructive pulmonary disease, unspecified; E10.22 Type 1 diabetes mellitus with diabetic chronic kidney disease; Z99.2 Dependence on renal dialysis; I49.8 Other specified cardiac arrhythmias; H91.90 Unspecified hearing loss, unspecified ear; Z79.4 Long term (current) use of insulin; Z87.891 Personal history of nicotine dependence; Y84.1 Kidney dialysis as the cause of abnormal reaction of the patient, or of later complication, without mention of misadventure at the time of the procedure; Y92.89 Other specified places as the place of occurrence of the external cause; R62.7 Adult failure to thrive; F03.91 Unspecified dementia, unspecified severity, with behavioral disturbance
CPT/HCPCS: 36415; 36589; 71045; 76000; 80048; 80053; 80061; 82550; 82553; 82962; 83605; 83880; 84484; 84550; 85007; 85025; 85610; 85730; 86705; 86709; 86803; 87040; 87070; 87340; 93005; 99285; J1815; S5561